=== PATIENT | male | born 1970 | race Caucasian/White ===

== ENCOUNTER 2020-04-27 08:22 | Outpatient (CLI) | payer OTHER, SELFPAY ==
--- NOTE | 2020-04-27 08:26 | USCV_ITS ---
Iván Sow Age: 49 Gender: M : 1970 Exam Date: 04/27/2020 08:26 Ordering Phys: Mac Crawford MD Technologist: Stephon Cason [place] [facility] [place]: CVA Risk Factors: Previous Vascular Surgery: Right Brachial BP: / Left Brachial BP: / Right Left Velocity (cm/s) Spectral Plaque Velocity (cm/s) Spectral Plaque Syst/Diast Broadening Syst/Diast Broadening 96.60/ 17.60 Prox CCA 100.00/ 19.70 91.00/ 23.50 Mid CCA 96.60 / 22.20 70.90/ 16.60 Distal CCA 106.80/ 25.60 73.00/ 24.10 Prox ICA 73.50 / 20.50 101.00/38.80 Mid ICA 102.50/ 29.10 62.90/ 24.90 Distal ICA 71.80 / 21.40 83.70 ECA 152.20 1.11 ICA/CCA 1.06 Antegrade Vertebral Antegrade 37.20/ 8.50 cm/s 54.60/ 13.80 cm/s Tri Subclavian Tri 173.5 119.1 0 0 FINDINGS Comparison: none available. No significant elevation of systolic or diastolic velocities. Waveforms are normal. No significant amount of calcified plaque or intimal thickening identified. CONCLUSIONS Normal carotid doppler ultrasound. Dr. Lauren Niño DO (Electronically Signed) Final Date: 27 April 2020 16:30 S
== END 2020-04-27 08:23 | disposition home or self-care (01) ==
LOC: US 08:24
PROVIDERS: PCP Family Medicine; Visit Provider Family Medicine
DX: I63.9 Cerebral infarction, unspecified (principal)
CPT/HCPCS: 93880; 99204

== ENCOUNTER 2021-06-21 10:43 | Outpatient (CLI) | payer OTHER, SELFPAY ==
[2021-06-21 10:49] VITALS: BMI 34.9
--- NOTE | 2021-06-21 10:50 | USCV_ITS ---
Iván Sow Age: 51 Gender: M : 1970 Exam Date: 06/21/2021 13:51 Ordering Phys: Calvin Ware MD ([email or web address]) Technologist: Exam Location: [facility] – [place] Indication: DYSPNEA BP: 134 / 72 HR: 73 Rhythm: Sinus Technical Quality: Adequate MEASUREMENTS (Male / Female) Normal Values 2D ECHO LV Diastolic Diameter PLAX 3.7 cm 4.2 - 5.9 / 3.9 - 5.3 cm LV Systolic Diameter PLAX 2.4 cm IVS Diastolic Thickness 1.1 cm 0.6 - 1.0 / 0.6 - 0.9 cm IVS Systolic Thickness 1.1 cm LVPW Diastolic Thickness 1.0 cm 0.6 - 1.0 / 0.6 - 0.9 cm LVPW Systolic Thickness 1.1 cm LVOT Diameter 2.0 cm LV Ejection Fraction 2D Teich 66.7 % LV Ejection Fraction MOD 2C 64.2 % LV Ejection Fraction 2C AL 64.2 % LA Diameter 2.0 cm LA Width 3.1 cm LA Height 5.5 cm RA Width 3.8 cm RA Height 5.0 cm Aorta at Sinotubular Diameter 2.7 cm DOPPLER AV Peak Velocity 263.3 cm/s LVOT Peak Velocity 99.0 cm/s AV Area Cont Eq vti 1.4 cm squared AV Area Cont Eq pk 1.2 cm squared MV Area PHT 5.0 cm squared Mitral E to A Ratio 0.8 MV E' Velocity 36.0 cm/s Mitral E to MV E' Ratio 7.5 Mitral E to LV E' Lateral Ratio 5.5 Mitral E to LV E' Septal Ratio 12.0 TR Peak Velocity 180.3 cm/s TR Peak Gradient 13.0 mmHg TV Peak E Velocity 93.0 cm/s Right Atrial Pressure 3.0 mmHg Pulmonary Artery Systolic Pressu 16.0 mmHg FINDINGS Left Ventricle Normal left ventricular size and systolic function, EF 62 %. No regional wall motion abnormalities. Mild left ventricular hypertrophy. Right Ventricle The right ventricle is normal in size and function. Right Atrium The right atrium is normal in size. Left Atrium The left atrium is normal in size. Mitral Valve Thickened mitral valve. Aortic Valve Moderate aortic valve stenosis with a valve area 1.3 cm squared. Possible bicuspid aortic valve.[id number] aortic valve regurgitation. Tricuspid Valve No gross abnormalities noted Pulmonic Valve No gross abnormalities noted Pericardium Normal pericardium without effusion. Aorta Normal ascending aorta dimension. CONCLUSIONS Moderate aortic valve stenosis with a valve area 1.3 cm squared. Possible bicuspid aortic valve. Normal left ventricular size and systolic function, EF 62 %. No regional wall motion abnormalities. Mild left ventricular hypertrophy. [id number] aortic valve regurgitation. Thickened mitral valve. There is no pericardial effusion. There are no intracardiac masses. No previous study is available for comparison. Dr Calvin Ware MD FACC (Electronically Signed) Final Date: 22 June 2021 09:13 S
--- NOTE | 2021-06-21 12:04 | NMCV_ITS ---
NM brie perf SPECT r/s* [id number] Iván Sow Age: 51 Gender: M : 1970 Exam Date: 06/21/2021 12:04 Ordering Phys: Calvin Ware MD ([email or web address]) Technologist: TERRANCE Teixeira Exam Location: [facility] Indications: SHORTNESS OF BREATH STRESS TEST Please see separate stress test report in [facility] for full findings IMAGE PROTOCOL Rest/Stress 1 Exercise Day Radiopharmaceutical Dose (mCi) Administration Site Administered by Rest: Tc-99m 10.6 IV TERRANCE Yadav Sestamibi Stress:Tc-99m 32.5 IV TERRANCE Yadav Sestamibi Rest: 21-Jun-2021 60 Discovery 630 Stress: 21-Jun-2021 15 Discovery 630 Radiopharmaceutical was injected at 85 % maximum heart rate. Images obtained in supine and prone position. SPECT RESULTS Technical Quality: Excellent Raw Data Analysis: Normal Image Corrections: No attenuation or motion correction applied Summed Stress Score: 2 Summed Rest Score: 2 Summed Difference Score: 1 PERFUSION FINDINGS Small area decreases uptake in the mid and apical inferior wall region, with no significant reversibility. Moderate decreases stable also was noted in the apical lateral region, with some reversibility. With the prone imaging, no significant reversible defects were noted. FUNCTIONAL RESULTS (calculated via Gated SPECT) Stress Image LV EF (%): 72 Stress EDV (mL):106 TID: 0.85 Stress ESV (mL):30 FUNCTIONAL FINDINGS: Segmental wall motion analysis revealing no gross wall motion normalities. IMPRESSIONS 1. Myocardial perfusion imaging revealing small area of reversible defect in the apical lateral region, suggestive of ischemia in the distribution of the circumflex artery. However in view of the inconsistency, most likely this is artifactual. 2. Normal LV ejection fraction of 72%. 3. LV wall motion analysis revealing no gross wall motion normalities. 4. Normal LV volume. Possibly no significant coronary ischemia based on the above findings Dr Calvin Ware MD FACC (Electronically Signed) Final Date: 21 June 2021 14:47 S
--- NOTE | 2021-06-21 12:04 | ECG_ITS ---
[facility] Test Date: 2021-06-21 Pat Name: Iván Sow Department: Room: Gender: Male Strategic Communications Manager: : 1970 Requested By: Calvin Ware Order Number: [id number] Danny MD: Calvin Ware M.D. Interpretive Statements NAME OF STUDY: EXERCISE SESTAMIBI STRESS TEST INDICATION: ABNORMAL EKG/CVA, PROCEDURE: The baseline electrocardiogram showed [normal sinus rhythm with nonspecific T wave changes. At the baseline, the patient's blood pressure was mm Hg with a heart rate of. The patient exercised for 8 minutes and 50 seconds on a standard Donnell protocol. Patient attained a maximum heart rate of 150 beats per minute( 87 % of the maximum predicted heart rate) with a blood pressure at the peak exercise of 219/118 mm Hg. The EKG at the peak exercise revealed no significant changes. Patient did not have any chest pain or any significant arrhythmis with the exercise Sestamibi was injected 1 minute prior to the peak exercise During the recovery phase, there were no new changes. Blood pressure at the end of the recovery phase was 156/78 mm Hg with a heart rate of 93 per minute. CONCLUSION: 1. No significant EKG changes with the treadmill exercise 2. No exercise-induced chest pain or cardiac arrhythmia. Hypertensive response to exercise 3. Fair exercise tolerance, attained a maximum of 10.2 METs 4. Sestamibi/Sestamibi perfusion results pending; see separate report. Electronically Signed On 06-25-2021 22:46:44 CDT by Calvin Ware M.D. [email or web address]
[2021-06-21 13:02] VITALS: BP 156/78; PULSE 95
== END 2021-06-21 10:44 | disposition home or self-care (01) ==
LOC: CDL 10:45
PROVIDERS: PCP Family Medicine; Visit Provider Internal Medicine Cardiovascular Disease
DX: I08.0 Rheumatic disorders of both mitral and aortic valves (principal); R01.1 Cardiac murmur, unspecified; R06.00 Dyspnea, unspecified
CPT/HCPCS: 78452; 93017; 93306; A9500

== ENCOUNTER 2022-05-16 06:29 | Outpatient (CLI) | payer OTHER, SELFPAY ==
--- NOTE | 2022-05-16 06:44 | USCV_ITS ---
Iván Sow Age: 51 Gender: M : 1970 Exam Date: 05/16/2022 06:51 Ordering Phys: Day Gonzalez MD Technologist: Exam [place] [facility] [place]ication: chest pain BP: 140 / 73 HR: 67 Rhythm: Sinus Technical Quality: Adequate MEASUREMENTS (Male / Female) Normal Values 2D ECHO LV Diastolic Diameter PLAX 3.2 cm 4.2 - 5.9 / 3.9 - 5.3 cm LV Systolic Diameter PLAX 2.4 cm IVS Diastolic Thickness 1.1 cm 0.6 - 1.0 / 0.6 - 0.9 cm IVS Systolic Thickness 1.4 cm LVPW Diastolic Thickness 1.2 cm 0.6 - 1.0 / 0.6 - 0.9 cm LVPW Systolic Thickness 1.4 cm LVOT Diameter 2.0 cm LV Ejection Fraction 2D Teich 41.7 % LV Ejection Fraction MOD 2C 70.5 % LV Ejection Fraction 2C AL 70.4 % LA Diameter 3.6 cm Aorta at Sinotubular Diameter 2.7 cm IVC Diameter 1.1 cm DOPPLER LVOT Peak Velocity 108.0 cm/s AV Area Cont Eq vti 1.6 cm squared MV Area PHT 5.0 cm squared Mitral E to A Ratio 1.0 MV E' Velocity 52.5 cm/s Mitral E to MV E' Ratio 7.7 Mitral E to LV E' Lateral Ratio 6.5 Mitral E to LV E' Septal Ratio 9.7 TR Peak Velocity 234.7 cm/s TR Peak Gradient 22.0 mmHg TV Peak E Velocity 96.0 cm/s Right Atrial Pressure 3.0 mmHg Pulmonary Artery Systolic Pressu 25.0 mmHg RV Acceleration Time 0.1 s FINDINGS Left Ventricle Normal left ventricular size and systolic function, EF 71 %. No regional wall motion abnormalities. Mild left ventricular hypertrophy. Grade I/IV diastolic dysfunction (abnormal relaxation filling pattern), normal to mildly elevated filling pressures. Right Ventricle The right ventricle is normal in size and function. Right Atrium The right atrium is normal in size. Left Atrium The left atrium is normal in size. Mitral Valve No gross abnormalities noted Aortic Valve Thickened aortic valve. Mild aortic valve regurgitation. Peak velocity 2.54 m/s with a peak gradient of 26 and a mean gradient of 11 mmHg. Calculated aortic valve area 1.6 cm squared Tricuspid Valve Trace tricuspid valve regurgitation. Pulmonic Valve Pulmonic valve not well visualized. Pericardium Normal pericardium without effusion. Aorta Normal ascending aorta dimension. IVC Normal inferior vena cava. CONCLUSIONS Normal left ventricular size and systolic function, EF 71 %. No regional wall motion abnormalities. Mild left ventricular hypertrophy. Grade I/IV diastolic dysfunction (abnormal relaxation filling pattern), normal to mildly elevated filling pressures. Mild aortic valve stenosis with a valve area 1.6 cm squared. Peak velocity 2.54 m/s with a peak gradient of 26 and a mean gradient of 11 mmHg. Cannot exclude bicuspid aortic valve Mild aortic valve regurgitation. Trace tricuspid valve regurgitation. Estimated pulmonary artery peak systolic pressure was 25 mmHg There is no pericardial effusion. There are no intracardiac masses. Compared to the study from 06/21/2021, there may not be a significant change Dr Calvin Ware MD FAC (Electronically Signed) Final Date: 16 May 2022 22:58 S
== END 2022-05-16 06:30 | disposition home or self-care (01) ==
LOC: RAD 06:31
PROVIDERS: PCP Family Medicine; Visit Provider Family Medicine
DX: R07.9 Chest pain, unspecified (principal); I35.0 Nonrheumatic aortic (valve) stenosis; I07.1 Rheumatic tricuspid insufficiency
CPT/HCPCS: 93306

== ENCOUNTER 2025-02-05 10:06 | Outpatient (CLI) | payer OTHER, SELFPAY ==
[2025-02-05 11:20] LABS: Basophils # 0.1 10^3/uL (0.0-0.1); Basophils % 0.6 %; Eosinophils # 0.3 10^3/uL (0.0-0.8); Eosinophils % 3.9 %; Hematocrit 44.7 % (37-53); Lymphocytes # 2.8 10^3/uL (0.8-4.8); Lymphocytes % 35.3 %; Mean Corpuscular HGB Conc 32.7 g/dL (30-55); Mean Corpuscular Hemoglobin 29.7 pg (27-33); Mean Platelet Volume 9.8 fL (7.4-10.4); Neutrophils # 3.79 10^3/uL (1.8-7.7); Neutrophils % 47.8 %; Nucleated Red Blood Cells % 0 %; Platelet Count 265 10^3/cmm (157-399); Red Blood Count 4.91 10^6/uL (3.85-5.65); Red Cell Distribution Width 12.4 % (12.1-15.1); White Blood Count 7.93 10^3/uL (3.29-11.43)
[2025-02-05 11:36] LABS: Alanine Aminotransferase 18 U/L (0-41); Albumin Level 3.9 g/dL (3.5-5.2); Alkaline Phosphatase 98 U/L (40-130); Aspartate Amino Transferase 19 U/L (0-40); Blood Urea Nitrogen 9 mg/dL (6-20); Calcium 8.5 mg/dL (8.5-10.5); Carbon Dioxide 24 mmol/L (22-29); Chloride 103 mmol/L (98-107); Globulin 3.8 g/dL (1.3-4.6); Glomerular Filtration Rate 101.5 mL/min (90-130); Glucose 105 mg/dL (65-115); Osmolality Calculated 283 mOsm/kg (285-295); Sodium 137 mmol/L (136-145); Total Bilirubin 0.3 mg/dL (0.15-1.2); Total Protein 7.7 g/dL (6.6-8.7)
== END 2025-02-05 10:07 | disposition home or self-care (01) ==
PROVIDERS: PCP Family Medicine; Visit Provider Nurse Practitioner Family
DX: Z79.899 Other long term (current) drug therapy (principal)
CPT/HCPCS: 36415; 80053; 85025; 86480

== ENCOUNTER → 2025-07-29 07:49 | Outpatient (BNVA) | payer OTHER, SELFPAY | PROVIDERS: PCP Family Medicine; Visit Provider Dermatology | DX: L40.0 Psoriasis vulgaris (principal) | CPT/HCPCS: 99203 ==